=== PATIENT | male | born 1970 | race Caucasian/White ===

== ENCOUNTER 2024-04-26 10:03 | Day surgery (SDC) | payer OTHER ==
[2024-04-22 14:38] VITALS: BMI 38.3
[2024-04-26] MEDS ORDERED: LIDOCAINE 1% (10MG/ML) FOR IV START INTRADERMA PRN (10:09)
[2024-04-26 10:24] VITALS: RESP 16
[2024-04-26] MEDS: LACTATED RINGERS 1,000 ML IV SCH (10:28)
[2024-04-26] MEDS: IV FLUID CONTINUATION 1,000 ML IV ONE ×2 (10:28→10:52)
[2024-04-26 10:29] LABS: Glucose,Whole Blood 205 mg/dL (70-110)
[2024-04-26] MEDS ORDERED: LACTATED RINGERS 1,000 ML BAG IV STA (10:37)
[2024-04-26] MEDS: INSULIN ASPART (NovoLOG) 100 UNIT/ML VIAL SQ ONE (10:39)
[2024-04-26] MEDS ORDERED: PROPOFOL 10 MG/ML 20 ML VIAL IV ONE (10:55)
--- NOTE | 2024-04-26 11:21 | P.PCN ---
Date of Procedure: 04/26/24 Procedure(s) Performed: BRIEF HISTORY: Patient is a 53-year-old pleasant white male scheduled for an elective colonoscopy as a part of screening for colon cancer PROCEDURE PERFORMED: Colonoscopy with snare polypectomy, biopsy and tattooing with Bharati ink. PREOPERATIVE DIAGNOSIS: Screening for colon cancer. IV sedation per Anesthesia. PROCEDURE: After informed consent was obtained, the patient, was brought into the endoscopy unit. IV sedation was administered by Anesthesia under continuous monitoring. Digital rectal examination was normal. Initially the Olympus CF-160 flexible video colonoscope was then inserted in the rectum, gradually advanced into the cecum without any difficulty. Careful examination was performed as the scope was gradually being withdrawn. Ileocecal valve and the appendiceal orifice were visualized and appeared normal. Prep was excellent. Mucosa of the cecum, ascending colon, transverse colon, descending colon appeared normal. In the sigmoid colon at 30 cm from the anal verge there was a 3 cm ulcerated mass identified and multiple biopsies were done from this area followed by tattooing with Bharati ink. The sigmoid colon there was a 1 cm polyp removed by snare polypectomy. In the rectum there were 2 polyps measuring 5 and 7 mm in size removed by snare polypectomy.. Retroflexion was performed in the rectum and no lesions were seen. The patient tolerated the procedure well. IMPRESSION: 3 cm ulcerated sigmoid colon mass 30 cm from anal verge status post multiple biopsies followed by tattooing with Bharati ink 1 cm rectosigmoid polyp status post snare polypectomy 5 mm and 7 mm rectal polyp status post snare polypectomy RECOMMENDATIONS: Findings of this examination were discussed with the patient as well as his family. He was advised to follow with the biopsy results. He will be scheduled for CT of the abdomen pelvis and follow-up in the office in 1 week.
[2024-04-26 11:53] VITALS: BP 122/79; PULSE 81
== END 2024-04-26 12:46 | disposition home or self-care (01) ==
LOC: ORWHC2ENDO 10:03
PROVIDERS: ATTEND Internal Medicine Gastroenterology
DX: C18.7 Malignant neoplasm of sigmoid colon (principal); K62.1 Rectal polyp; K63.3 Ulcer of intestine; I10 Essential (primary) hypertension; E78.5 Hyperlipidemia, unspecified; E11.9 Type 2 diabetes mellitus without complications; G47.33 Obstructive sleep apnea (adult) (pediatric); Z79.84 Long term (current) use of oral hypoglycemic drugs; Z79.899 Other long term (current) drug therapy
CPT/HCPCS: 88305; 88342; 88341; 45380; 45385; 45381; J2704

== ENCOUNTER → 2024-04-29 | Outpatient (CLI) | payer OTHER ==
[2024-04-29 08:37] LABS: African American GFR (CKD) >90 (>60 ml/min/1.73 sqM); Blood Urea Nitrogen 18 mg/dL (9-20); Non-African American GFR(CKD) >90 (>60 ml/min/1.73 sqM)
--- NOTE | 2024-04-29 10:02 | CT ---
EXAMINATION TYPE: CT abdomen pelvis w con DATE OF EXAM: 04/29/2024 9:46 AM COMPARISON: None. CLINICAL INDICATION: Male, 53 years old with history of R19.09 OTHER INTRA-ABDOMINAL AND PELVIC SWELL ING,, ABDOMINAL MASS, TECHNIQUE: Contiguous axial scanning of the abdomen and pelvis following administration of 100 ml Iso sang 300 IV contrast. Delayed images through the kidneys and coronal/sagittal reconstructions perform ed. CT DLP: 2340 mGycm, Automated exposure control for dose reduction was used. FINDINGS: Heart upper limits of normal in size without pericardial effusion. 4 mm subpleural pulmonar y nodule lateral left lower lobe, axial image 15 can be reassessed at a three-month follow-up CT ches t. No pleural effusion. Liver enlarged at 24.5 cm measured on coronal series were diminished attenuation. No focal lesion see n. Portal venous system is patent. No biliary ductal dilatation. Gallbladder, adrenal glands, kidneys, and pancreas within normal limits. Spleen enlarged at 15.0 cm. No dilated small bowel, free fluid, or free air. No mesenteric or retroperitoneal lymphadenopathy. Normal appendix. Oral contrast progressed into the cecum. There is mild overall stool burden. Minimal sigmoid diverticulosis. No pericolonic inflammatory change. Bladder urine distended. Left-sided pelvic phleboliths. Prostate gland mildly enlarged 4.3 cm wide. N o abnormal fluid collection in the pelvis or pelvic lymphadenopathy. Bones: Mild degenerative change at the hips. Degenerative bony ankylosis left SI joint. Facet arthrop athy mid to lower lumbar spine. IMPRESSION: 1. HEPATOMEGALY AT 24.5 CM WITH AT LEAST MODERATE HEPATIC STEATOSIS. FURTHER CLINICAL MANAGEMENT IS R ECOMMENDED. 2. SPLENOMEGALY AT 15.0 CM. [facility], , 04/29/2024 10:00 AM
== END | disposition home or self-care (01) ==
LOC: RADCTMAIN 07:31
PROVIDERS: ATTEND Internal Medicine Gastroenterology
DX: R19.09 Other intra-abdominal and pelvic swelling, mass and lump (principal); K76.0 Fatty (change of) liver, not elsewhere classified; R16.2 Hepatomegaly with splenomegaly, not elsewhere classified
CPT/HCPCS: 82565; 84520; 74177; 36415; Q9967